=== PATIENT | male | born 1970 | race Caucasian/White ===

== ENCOUNTER → 2017-01-16 | Outpatient (CLI) | payer BC ==
[2017-01-16 08:36] LABS: HEMOGLOBIN 17.8 gm/dl (14.0-17.5); WHITE BLOOD COUNT 9.3 K/UL (4.5-11.0)
[2017-01-16 08:59] LABS: BUN/CREATININE RATIO 17 (0-10)
== END ==
LOC: LAB 07:46
PROVIDERS: Nurse Practitioner Family
DX: D45 Polycythemia vera (principal); E11.65 Type 2 diabetes mellitus with hyperglycemia; I10 Essential (primary) hypertension; M51.37 Other intervertebral disc degeneration, lumbosacral region; E78.5 Hyperlipidemia, unspecified
CPT/HCPCS: 36415; 80053; 80061; 83036; 83540; 83550; 84443; 85025

== ENCOUNTER 2021-03-27 12:23 | Inpatient (IN) | payer BC ==
[~2021-03-27] VITALS: Ht 190.5 cm; Wt 110.7 kg
[~2021-03-27 12:23] MED LIST: ANTIBIOTIC28.4 GM TP; ASPIRIN EC81 MG PO; ATORVASTATIN CA10 MG PO; ATORVASTATIN CA20 MG PO; CLOPIDOGREL75 MG PO; COLACE100 MG PO; CYCLOBENZAPRINE5 MG PO; DIFLUCAN 100 M100 MG PO; DILTIAZEM 24HR120 M1 PO; DILTIAZEM 24HR240 M1 PO; JANUVIA 100 MG100 MG PO; LEVEMIR FL100 UNIT/1 SQ; LISINOPRIL40 MG PO; LOPRESSOR 50 MG50 MG PO; LOPRESSOR100 MG PO; METFORMIN HCL1000 MG PO; NAPROSYN500 MG PO; PERCOCET 5/325 T1 EA PO; TRAMADOL HCL50 MG PO; VICTOZA 1818 MG/3 ML SC; ZESTRIL40 MG PO; ZYVOX100 MG/5 M PO; ZYVOX600 MG PO
[2021-03-27 14:07] LABS: HEMOGLOBIN 18.2 gm/dl (14.0-17.5); RED BLOOD COUNT 6.06 M/UL (4.20-5.50); WHITE BLOOD COUNT 14.2 K/UL (4.5-11.0)
[2021-03-27 14:40] LABS: BUN/CREATININE RATIO 16 (0-10)
[2021-03-27] MEDS ORDERED: ULTRAM50 MG PO (18:36)
[2021-03-28 03:37] LABS: HEMOGLOBIN 16.7 gm/dl (14.0-17.5); RED BLOOD COUNT 5.53 M/UL (4.20-5.50); WHITE BLOOD COUNT 13.8 K/UL (4.5-11.0)
[2021-03-28 04:10] LABS: BUN/CREATININE RATIO 20 (0-10)
[2021-03-29 05:58] LABS: HEMOGLOBIN 15.6 gm/dl (14.0-17.5); RED BLOOD COUNT 5.2 M/UL (4.20-5.50); WHITE BLOOD COUNT 11.6 K/UL (4.5-11.0)
[2021-03-29 06:26] LABS: BUN/CREATININE RATIO 12 (0-10)
[2021-03-30 05:21] LABS: HEMOGLOBIN 15.5 gm/dl (14.0-17.5); RED BLOOD COUNT 5.16 M/UL (4.20-5.50); WHITE BLOOD COUNT 12.2 K/UL (4.5-11.0)
[2021-03-30 05:25] LABS: BUN/CREATININE RATIO 16 (0-10)
[2021-03-31 05:49] LABS: HEMOGLOBIN 16.1 gm/dl (14.0-17.5); RED BLOOD COUNT 5.37 M/UL (4.20-5.50); WHITE BLOOD COUNT 11.6 K/UL (4.5-11.0)
[2021-03-31 07:47] LABS: BUN/CREATININE RATIO 11 (0-10)
--- NOTE | 2021-04-01 01:32 | NUR ---
pt left room to go outside and smoke. No distress or needs at this time
[2021-04-01 07:18] LABS: HEMOGLOBIN 16.6 gm/dl (14.0-17.5); RED BLOOD COUNT 5.89 M/UL (4.20-5.50); WHITE BLOOD COUNT 10.7 K/UL (4.5-11.0)
[2021-04-01 07:41] LABS: BUN/CREATININE RATIO 10 (0-10)
--- NOTE | 2021-04-01 13:54 | NUR ---
picc line insderted by tim lopez, left upper arm noted. dressing dry clean and intact.
--- NOTE | 2021-04-01 16:37 | NUR ---
notified for patient zyvox medicine ist dose has to be given at hospital prior to home health going to patient home tommorrow.
--- NOTE | 2021-04-01 17:05 | NUR ---
reported to dr. singh of patient finacial arrangement to home health pharmacy that patient unable to afford a 600/wk fee. dr. cast acknowledged
--- NOTE | 2021-04-01 18:43 | NUR ---
report given to admitting nurse at [facility]
--- NOTE | 2021-04-01 18:46 | NUR ---
report given to admitting nurse fitz tee [facility]
== END 2021-04-01 20:15 | disposition home health service (06) | DRG 853 ==
LOC: ER1 12:23 → PROG CARE 18:40 → CDU 18:40 → PROG CARE 23:48 → CDU 03-28 00:57 → PROG CARE 03-28 00:57 → M/S 03-28 19:49
PROVIDERS: Physician Assistant; Physician Assistant Medical; Podiatrist Foot & Ankle Surgery; ADMIT Internal Medicine
PROC: 0S9N0ZZ Drainage of Left Metatarsal-Phalangeal Joint, Open Approach (ICD-10-PCS; 2021-03-29)
PROC: 0JBR0ZZ Excision of Left Foot Subcutaneous Tissue and Fascia, Open Approach (ICD-10-PCS; principal; 2021-03-29 14:19)
PROC: 05HC33Z Insertion of Infusion Device into Left Basilic Vein, Percutaneous Approach (ICD-10-PCS; 2021-03-30)
DX: A41.02 Sepsis due to Methicillin resistant Staphylococcus aureus (principal); A48.0 Gas gangrene; E11.52 Type 2 diabetes mellitus with diabetic peripheral angiopathy with gangrene; L03.116 Cellulitis of left lower limb; L02.612 Cutaneous abscess of left foot; M86.8X7 Other osteomyelitis, ankle and foot; Z20.822 Contact with and (suspected) exposure to COVID-19; E11.40 Type 2 diabetes mellitus with diabetic neuropathy, unspecified; M06.9 Rheumatoid arthritis, unspecified; I16.0 Hypertensive urgency; E11.69 Type 2 diabetes mellitus with other specified complication; I10 Essential (primary) hypertension; D45 Polycythemia vera; E11.65 Type 2 diabetes mellitus with hyperglycemia; E11.628 Type 2 diabetes mellitus with other skin complications; E87.6 Hypokalemia; Z82.49 Family history of ischemic heart disease and other diseases of the circulatory system; Z86.14 Personal history of Methicillin resistant Staphylococcus aureus infection; Z98.890 Other specified postprocedural states; Z86.73 Personal history of transient ischemic attack (TIA), and cerebral infarction without residual deficits; Z79.899 Other long term (current) drug therapy
CPT/HCPCS: 36415; 73630; 73718; 80048; 80053; 80202; 82962; 83036; 83605; 83735; 84132; 85025; 85027; 85652; 86140; 87040; 87070; 87077; 87186; 87205; 96374; 96375; 99284; C1713; C1751; J2001; J2020; J2250; J2270; J2543; J2704; J2795; J3010; J3370; J7030; J7070; J7120; U0002

== ENCOUNTER → 2021-08-01 | Outpatient (CLI) | payer BC ==
[~2021-08-01] MED LIST changes: +ULTRAM50 MG PO
== END ==
LOC: CT 07-23 08:00
DX: I67.2 Cerebral atherosclerosis (principal); I65.23 Occlusion and stenosis of bilateral carotid arteries; Z87.898 Personal history of other specified conditions
CPT/HCPCS: 36415; 70496; 70498; 82565; Q9967